=== PATIENT | male | born 1970 | race Hispanic/Latino ===

== ENCOUNTER 2017-09-05 07:20 | Day surgery (SDC) | payer MEDICARE, OTHER ==
[2017-09-05 07:33] VITALS: BMI 36.8
[2017-09-05 08:11] VITALS: RESP 18
[2017-09-05 08:31] LABS: HEMOGLOBIN 16.2 g/dL (12.0-18.0); MEAN CELL VOLUME 82.6 fl (80.0-94.0); MEAN CORPUSCULAR HEMOGLOBIN 26.8 pg (27.0-31.0); MEAN CORPUSCULAR HGB CONC 32.4 g/dL (33.0-37.0); RBC 6.07 Mil/uL (4.40-5.90); RED CELL DISTRIBUTION WIDTH 15.9 % (11.5-14.5); WHITE BLOOD COUNT 9.1 K/uL (4.8-10.8)
[2017-09-05 08:46] LABS: ALB/GLOB RATIO 1.2 (1.0-2.1); ALBUMIN 4.4 g/dL (3.5-5.0); ALT/SGPT 68 U/L (21-72); AST/SGOT 46 U/L (17-59); BLOOD UREA NITROGEN 16 mg/dl (9-20); CALCIUM 9.6 mg/dL (8.4-10.2); GFR AFRICAN-AMERICAN > 60; GFR NON-AFRICAN AMERICAN > 60
[2017-09-05] MEDS ORDERED: Bupivacaine 0.5% Inj(30mL) ONE (09:31)
[2017-09-05] MEDS ORDERED: Lidocaine 1% Inj (20ml) ONE (09:31)
[2017-09-05] MEDS ORDERED: Rocuronium 10 mg/ml (5 ml) ONE (09:47)
[2017-09-05] MEDS ORDERED: Succinylcholine 200 mg/10 ml Inj IV ONE (09:47)
[2017-09-05] MEDS ORDERED: Propofol 10 mg/ml Inj (20 ML) ONE (09:47)
[2017-09-05] MEDS ORDERED: Midazolam 2 MG/2 ML VIAL ONE (09:47)
[2017-09-05] MEDS ORDERED: Ropivacaine 0.5% 30ML IV ONE (09:57)
[2017-09-05] MEDS ORDERED: Lidocaine 2% Inj (20ml) ONE (09:58)
[2017-09-05 09:59] LABS: PARTIAL THROMBOPLASTIN TIME 28.6 Seconds (25.6-37.1); PROTHROMBIN TIME 10.6 Seconds (9.8-13.1)
[2017-09-05] MEDS ORDERED: Lactated Ringer's 1,000 ML IV ONE ×4 (10:05→15:00)
[2017-09-05] MEDS ORDERED: Neostigmine Methylsulfate 3mg/3ml Syringe IV ONE (11:55)
[2017-09-05] MEDS ORDERED: Desflurane Inhalation Anesthetic Liq (240 ml) ONE (12:06)
--- NOTE | 2017-09-05 12:38 | PCM.SURG1 ---
Surgeon's Initial Post Op Note - Surgeon's Notes Surgeon: baldomero Jailer/Training Officer: clint aquino Type of Anesthesia: General Endo Pre-Operative Diagnosis: left wrist SL tear and carpal tunnel Operative Findings: see dictation Post-Operative Diagnosis: same Operation Performed: SL reconstruction. endoscopic carpal tunnel release Specimen/Specimens Removed: none Estimated Blood Loss: EBL {In ML}: 10 Date of Surgery/Procedure: 09/05/17 Time of Surgery/Procedure: 10:00
[2017-09-05] MEDS ORDERED: HYDROmorphone 0.5 mg/0.5 ml ISec IVP PRN (12:49)
--- NOTE | 2017-09-05 12:55 | PCM.ANESB4 ---
Infraclavicular Block - Femoral Nerve Block Date of Procedure: 09/05/17 Procedure Performed: Brachial Plexus at the Infraclavicular area Left - Procedure Infraclavicular Block: The procedure was explained to the patient that it is for the post-operative pain management. Consent was obtained after a thorough discussion with the patient regarding the benefits and possible complications of local anesthetic block of the brachial plexus at the infraclavicular area. The patient was brought to the operating room and standard monitors were applied. Time-out was held with the circulating nurse to confirm the correct block. The patient's head was gently rotated away from the operative ____left____ shoulder and the area medial to the coracoid process and inferior to the clavicle was carefully palpated. The ultrasound transducer was then applied to the skin in the transverse plane and the brachial plexus was visualized surrounding the axillary artery and deep to the pectoralis major and minor muscles. After thorough identification, this area was prepped with chloroprep solution t At this point, a #21 gauge Stimuplex 4-inch needle was inserted cephalad to the ultrasound transducer and inferior to the clavicle in-plane towards the posterior aspect of the axillary artery. Needle advancement was performed carefully under ultrasound visualization. Nerve stimulator was used and twitch of the affected extremity including fingers, hand, wrist and elbow was obtained at current of __0.3___MA. After repeated negative aspiration, ___5__cc of __ Ropivacaine_0.5__% was injected and this was followed with ___25___ cc of ____Ropivacaine 0.5___ % . Under ultrasound guidance the local anesthetics were observed surrounding the cords of the brachial plexus. The needle was removed intact and sterile dressing was applied. The patient had stable vital signs with no signs of LAST.
[2017-09-05 15:11] VITALS: O2SAT 96
[2017-09-05 15:49] VITALS: BP 115/78; PULSE 105; TEMP 97.4
--- NOTE | 2017-09-07 08:48 | OP ---
PROCEDURE DATE: 09/05/2017 SURGEON: Jeyson Mccarty MD PLANNING SPECIALIST: ROSALIE Mcnamara. PREOPERATIVE DIAGNOSES: 1. Chronic left wrist scapholunate tear. 2. Left wrist carpal tunnel syndrome. 3. Left wrist carpal instability. 4. Left wrist posterior interosseous nerve neuropathy. POSTOPERATIVE DIAGNOSES: 1. Chronic left wrist scapholunate tear. 2. Left wrist carpal tunnel syndrome. 3. Left wrist carpal instability. 4. Left wrist posterior interosseous nerve neuropathy. PROCEDURES: 1. Endoscopic left carpal tunnel syndrome release, 85879. 2. Left wrist scapholunate reconstruction using autograft and internal brace, Arthrex, SwiveLock anchors, 92343. 3. Left wrist posterior interosseous nerve neurectomy, 69552. 4. Left wrist radial styloidectomy, 95317. 5. Left wrist open reduction and pinning of carpal instability, 29615. ESTIMATED BLOOD LOSS: Minimal. TYPE OF ANESTHESIA: General and postoperative left upper extremity block. SPECIMENS: None. COMPLICATIONS: None. DISPOSITION: Stable to recovery room. OPERATIVE FINDINGS: A full thickness tear of the scapholunate ligament with instability of the proximal carpal bones, minimal arthritic changes of the radial styloid and proximal pole of the scaphoid, compressed median nerve in the carpal tunnel now. INDICATIONS: This is a 47-year-old male who has been complaining of left wrist pain and numbness. Patient has failed conservative therapy including anti-inflammatory medication, bracing, splinting and physical therapy. He was diagnosed with scapholunate instability, carpal tunnel syndrome. Patient was indicated for the above surgeries. Informed consent was obtained. Risks and benefits of the surgery were explained in detail. Risks included, but not limited to bleeding; infection; tendon, nerve and vessel injury and instability; chronic pain; potential need for additional surgery in future. Patient understood the above risks and elected to proceed. DESCRIPTION OF PROCEDURE: Patient was brought to the operating room and placed supine on the operating room table. After adequate general anesthesia was given, a well-padded non-sterile tourniquet was placed on the patient's left upper extremity. Left upper extremity was then prepped and draped in standard surgical fashion. Time out was performed. Two incisions were outlined, one was the volar transverse incision on the distal flexion crease. The second incision was dorsum of the wrist, midline longitudinal incision. The left arm was elevated and exsanguinated and tourniquet was inflated to 250 mmHg. Incision was made over the medial aspect of the wrist first. Dissection was carried down identifying the palmaris longus tendon. The palmaris longus tendon was retracted. The deep fascia was incised and the carpal canal was entered. Sequential dilators were entered into the carpal canal. After this, an endoscopic carpal tunnel knife was inserted into the carpal canal. The median nerve was visualized and protected throughout the whole procedure and the carpal canal was incised from distal to proximal direction. The entire carpal ligament was incised and decompressed. The endoscopic instrument was removed and the median nerve was inspected again. The proximal fascia was also incised and released over the median nerve. The wound was then copiously irrigated and closed with 3-0 Monocryl suture. Steri-Strips were applied. Next, work was begun on the scapholunate reconstruction. Posterior incision over the scapholunate area was made. Incision was carried down into the extensor retinaculum. Superficial ulnar radial nerves were identified and protected. The retinaculum was identified and incised over the third extensor tendon compartment and was identified and protected. Next, incision was made deep to the fifth extensor compartment. On the radial side, the posterior interosseous nerve was identified, dissected out and neurectomy was performed. The nerve was retracted with . Next, after exposing the extensor tendons, the capsule was incised in a T-shaped fashion. Arthrotomy was performed and carpal bones were identified. Upon inspection, it was a full-thickness tear around the scapholunate ligament and also early mild arthritic changes of the radial styloid and proximal pole of the scaphoid. At this time, a radial styloidectomy was performed with rongeur and rasp. About 2 mm of the medial ulnar styloid was removed. Next, work was begun on securing the autograft. The extensor carpi radialis brevis tendon was identified and 2 mm of the tendon was dissected out and retrieved with a tendon stripper. About 10 cm of the graft was retrieved with 2 mm thickness. Then at the two ends of the graft, #2-0 FiberLoop suture was placed securing the graft at both ends. Next, a 0.062 Margarito wire was placed in both proximal pole of the scaphoid and lunate as joysticks. The two carpal bones were then openly reduced by flexing the lunate and extending the scaphoid. Reduction was provisionally held in place with a Belle clamp. Next, work was begun on identifying anatomic junction area for the scapholunate ligament and both the scaphoid and the lunate. A cannulated wire was used to enter the proximal pole of the scaphoid, distal pole of the scaphoid and another wire was placed into the middle area of the lunate. Fluoroscopic images confirmed well placement of the wires in all three positions. Next, a 3.2 mm drill was used over the cannulated wires for anchor placement. All three drill holes were made, wires were removed and the drill holes were cleaned out with irrigation and suction. After this, the autograft was placed with SwiveLock anchor turning at the proximal pole of the scaphoid, then into the lunate and finally the third bent into the distal pole of the scaphoid. FiberWire stitch was also used as an internal brace to lift the anchors. Final construct formed a stable scapholunate anatomy with no gapping or instability. Next, a 6.2 Margarito wire pin was placed percutaneously from the scaphoid into the capitate to hold the carpal bones in anatomic reduction. The pins were cut short and bent outside the skin. The wound was then copiously irrigated. X-rays again confirmed well-aligned scapholunate anatomy with good placement of hardware. There was no limitation radiocarpal joint. The capsule was then closed with 4-0 Vicryl interrupted sutures. Tourniquet was deflated. Hemostasis was obtained. The skin was closed with 4-0 nylon sutures and a sterile dressing was applied consisting of fluffs, 4x4, Xeroform and long arm plaster splint. Patient tolerated the procedure well and was returned to the recovery room in excellent condition. Jeyson Mccarty MD
== END 2017-09-05 16:00 | disposition home or self-care (01) ==
LOC: H.OPSURG 07:20
PROVIDERS: ATTEND Orthopaedic Surgery
DX: M25.332 Other instability, left wrist (principal); M19.032 Primary osteoarthritis, left wrist; J45.909 Unspecified asthma, uncomplicated; E11.9 Type 2 diabetes mellitus without complications; E78.5 Hyperlipidemia, unspecified; I10 Essential (primary) hypertension; F32.9 Major depressive disorder, single episode, unspecified; E66.9 Obesity, unspecified; G56.02 Carpal tunnel syndrome, left upper limb; G62.89 Other specified polyneuropathies
CPT/HCPCS: 25230; 25320; 25670; 29847; 36415; 64772; 80053; 82948; 85027; 85610; 85730; C1713; J0330; J0690; J1885; J2001; J2250; J2405; J2704; J2710; J2765; J3010; J7030; J7120